=== PATIENT | female | born 1995 | race Caucasian/White ===

== ENCOUNTER 2017-11-16 17:23 | Emergency (ER) | payer BC ==
[~2017-11-16] VITALS: Ht 165.1 cm; Wt 54.4 kg
[~2017-11-16 17:23] MED LIST: FLEXERIL PO; HYDROCODONE-AP1 EAC6 PO; MOBIC7.5 MG PO; NOHOMEMEDICATIONS; NORCO 5-325 TA1 EACH PO; PROAIR HFA8.5 GM PO; ZANTAC 7575 MG PO; ZOFRAN ODT4 MG PO; ZOFRAN4 MG PO; ZPAK PO
[2017-11-16] MEDS ORDERED: CYCLOBENZAPRINE5 MG PO (19:07)
[2017-11-16] MEDS ORDERED: NAPROSYN500 MG PO (19:07)
[2017-11-16 19:16] VITALS: BP 128/73
== END 2017-11-16 19:18 | disposition home or self-care (01) ==
LOC: M.ERS 17:23
DX: M94.0 Chondrocostal junction syndrome [Tietze] (principal); M41.9 Scoliosis, unspecified; Z88.0 Allergy status to penicillin

== ENCOUNTER 2017-11-23 19:16 | Emergency (ER) | payer BC ==
[~2017-11-23] VITALS: Ht 165.1 cm; Wt 54.4 kg
[~2017-11-23 19:16] MED LIST changes: +CYCLOBENZAPRINE5 MG PO; +NAPROSYN500 MG PO
[2017-11-23] MEDS ORDERED: TRAMADOL 50 MG50 MG PO (20:09)
[2017-11-23 20:35] VITALS: BP 130/79
== END 2017-11-23 20:41 | disposition home or self-care (01) ==
LOC: M.ERS 19:16
DX: S46.212A Strain of muscle, fascia and tendon of other parts of biceps, left arm, initial encounter (principal); M75.22 Bicipital tendinitis, left shoulder; Z88.0 Allergy status to penicillin; X50.0XXA Overexertion from strenuous movement or load, initial encounter; Y93.89 Activity, other specified; Y92.89 Other specified places as the place of occurrence of the external cause; Y99.8 Other external cause status

== ENCOUNTER 2018-03-18 22:24 | Emergency (ER) | payer BC ==
[~2018-03-18] VITALS: Ht 165.1 cm; Wt 50.8 kg
[~2018-03-18 22:24] MED LIST changes: +TRAMADOL 50 MG50 MG PO
[2018-03-18] MEDS ORDERED: ROBAXIN 750 MG750 M1 PO (23:29)
[2018-03-18] MEDS ORDERED: BUTALB-APAP-CA1 EACH PO (23:29)
[2018-03-18 23:36] VITALS: BP 125/77
== END 2018-03-18 23:37 | disposition home or self-care (01) ==
LOC: M.ERS 22:24
DX: F07.81 Postconcussional syndrome (principal); S16.1XXA Strain of muscle, fascia and tendon at neck level, initial encounter; F17.200 Nicotine dependence, unspecified, uncomplicated; Z88.0 Allergy status to penicillin; V89.2XXA Person injured in unspecified motor-vehicle accident, traffic, initial encounter; Y93.89 Activity, other specified; Y92.89 Other specified places as the place of occurrence of the external cause; Y99.8 Other external cause status

== ENCOUNTER 2018-11-11 18:05 | Emergency (ER) | payer BC ==
[~2018-11-11] VITALS: Ht 165.1 cm; Wt 58.1 kg
[~2018-11-11 18:05] MED LIST changes: +BUTALB-APAP-CA1 EACH PO; +NABUMETONE 750750 M1 PO; +PROTONIX 20 MG20 M1 PO; +ROBAXIN 750 MG750 M1 PO
[2018-11-11 18:13] VITALS: BP 122/78
--- NOTE | 2018-11-12 09:36 | EKG ---
[place] [address] ELECTROCARDIOGRAM REPORT Name: JOSEMANUEL LONGORIA Room: [facility]#: [id number] Admission: 11/11/18 Attend Phys: Discharge: 11/11/18 Date of : [birth year] Report #: [id number] THIS REPORT FOR: //name// [facility] ED Test Date: 2018-11-11 Test Time: 18:10:10 Pat Name: JOSEMANUEL LONGORIA Department: Room: Gender: F Teaseler: MECHELLE : 1995 Requested By: Magi Malik Order Number: [id number] MD: Deon Gomez Measurements Intervals [place] Rate: 73 P: 32 TX: 110 QRS: 37 QRSD: 99 T: 16 QT: 393 QTc: 433 Interpretive Statements Sinus rhythm Borderline short [place] interval Compared to ECG 11/09/2018 17:41:34 rate increased Electronically Signed On 11-12-2018 9:36:29 SPECIALIZED LANGUAGE INSTRUCTOR by Deon Gomez [email or web address] <ELECTRONICALLY SIGNED> By: Deon Gomez MD, [facility] 11/12/18 0936 1810 09 Deon Gomez MD, FACC /EPI
== END 2018-11-11 18:34 | disposition home or self-care (01) ==
LOC: M.ERS 18:05
DX: R07.89 Other chest pain (principal); G89.29 Other chronic pain; M41.9 Scoliosis, unspecified; Z88.0 Allergy status to penicillin

== ENCOUNTER 2021-04-29 18:16 | Emergency (ER) | payer OTHER ==
[~2021-04-29] VITALS: Ht 165.1 cm; Wt 58.1 kg
[2021-04-29] MEDS ORDERED: PHENERGAN 25 MG25 M1 PO (21:58)
[2021-04-29] MEDS ORDERED: OMEPRAZOLE 20 M20 M1 PO (21:58)
[2021-04-29 22:17] LABS: URINE BILIRUBIN NEGATIVE (Negative); URINE BLOOD NEGATIVE (Negative); URINE CLARITY CLEAR; URINE COLOR YELLOW; URINE GLUCOSE-RANDOM NEGATIVE (Negative); URINE KETONES 2+ (Negative); URINE LEUKOCYTES-REFLEX NEGATIVE (Negative); URINE NITRITE-REFLEX NEGATIVE (Negative); URINE PROTEIN NEGATIVE (Negative); URINE UROBILINOGEN 0.2 E.U./dl (0.2-1.0)
[2021-04-29 22:45] VITALS: BP 132/84
--- NOTE | 2021-04-30 11:34 | EKG ---
[place] [address] ELECTROCARDIOGRAM REPORT Name: JOSEMANUEL LONGORIA Room: [facility]#: [id number] Admission: 04/29/21 Attend Phys: Discharge: 04/29/21 Date of : [birth year] Date of Service: 04/29/21 182 Report #: [id number] THIS REPORT FOR: //name// [facility] ED Test Date: 2021-04-29 Test Time: 18:24:49 Pat Name: JOSEMANUEL LONGORIA Department: Room: Gender: F Jack Setter: : 1995 Requested By: Lakesha Broussard Order Number: [id number] MD: Landon Ziegler Measurements Intervals [place] Rate: 57 P: 12 MA: 106 QRS: 40 QRSD: 95 T: 11 QT: 423 QTc: 412 Interpretive Statements Sinus rhythm Short MA interval Compared to ECG 11/11/2018 18:10:10 No significant changes Electronically Signed On 04-30-2021 11:33:53 CDT by Landon Ziegler [email or web address] <ELECTRONICALLY SIGNED> By: Aye Ziegler MD, [facility] 04/30/21 1133 1824 1824 Aye Ziegler MD, [facility] /EPI
--- NOTE | 2021-04-30 11:35 | EKG ---
[place] [address] ELECTROCARDIOGRAM REPORT Name: JOSEMANUEL LONGORIA Room: [facility]#: [id number] Admission: 04/29/21 Attend Phys: Discharge: 04/29/21 Date of : [birth year] Date of Service: 04/29/212035 Report #: [id number] THIS REPORT FOR: //name// [facility] ED Test Date: 2021-04-29 Test Time: 20:36:00 Pat Name: JOSEMANUEL LONGORIA Department: Room: Gender: Chef & Owner: : 1995 Requested By: Jason Machuca Order Number: [id number] MD: Landon Ziegler Measurements Intervals [place] Rate: 50 P: 15 IN: 120 QRS: 32 QRSD: 116 T: 13 QT: 444 QTc: 405 Interpretive Statements Sinus rhythm Nonspecific intraventricular conduction delay Borderline ST elevation, lateral leads Baseline wander in lead(s) I,II,aVR Compared to ECG 04/29/2021 18:24:49 Intraventricular conduction delay now present ST (T wave) deviation now present Short IN interval no longer present Electronically Signed On 04-30-2021 11:34:53 CDT by Landon Ziegler [email or web address] <ELECTRONICALLY SIGNED> By: Aye Ziegler MD, [facility] 04/30/21 1134 35 35 Aye Ziegler MD, [facility] /EPI
== END 2021-04-29 22:46 | disposition home or self-care (01) ==
LOC: M.ERS 18:16
PROVIDERS: Physician Assistant
DX: R07.89 Other chest pain (principal); J45.909 Unspecified asthma, uncomplicated; Z88.8 Allergy status to other drugs, medicaments and biological substances; Z88.0 Allergy status to penicillin